=== PATIENT | male | born 1990 | race Caucasian/White ===

== ENCOUNTER 2021-05-20 08:14 | Emergency (ER) | payer OTHER ==
[~2021-05-20] VITALS: Ht 167.6 cm; Wt 59.0 kg
[2021-05-20] MEDS ORDERED: SERTRALINE HCL25 MG PO (08:29)
--- NOTE | 2021-05-21 17:32 | EKG ---
[facility] [address] [facility] [place] [address] Signed Sinus rhythm with marked sinus arrhythmia Otherwise normal ECG No previous ECGs available Confirmed by SANGEETHA CHAMBERS DO ([id number]) on 05/21/2021 5:32:00 PM Electronically Signed By: SANGEETHA CHAMBERS DO [id number] PATIENT NAME: CASIJESSICALAMINANA HALL Electrocardiogram DATE OF : 89 PHYSICIAN: SANGEETHA CHAMBERS DO REPORT #: [id number] REPORT IS CONFIDENTIAL AND NOT TO BE RELEASED WITHOUT AUTHORIZATION
== END 2021-05-20 10:01 | disposition home or self-care (01) ==
LOC: ED 08:14
DX: R07.89 Other chest pain (principal); Z79.899 Other long term (current) drug therapy
CPT/HCPCS: 36415; 71046; 84484; 85025; 93005; 93010; 96372; 99285-25; J1885